=== PATIENT | female | born 1965 | race Caucasian/White ===

== ENCOUNTER 2018-12-28 10:45 | Inpatient (IN) | payer MEDICAID ==
[~2018-12-28] VITALS: Ht 152.4 cm; Wt 90.3 kg
[2018-12-28] MEDS ORDERED: LACTATED RINGERS 1,000 ML IV SCH (11:30)
[2018-12-28 11:58] LABS: UCG SCREEN NEGATIVE
[2018-12-28] MEDS ORDERED: ROCURONIUM BROMIDE 10MG/ML VIAL 5ML IV ONE ×2 (12:48→16:13)
[2018-12-28] MEDS ORDERED: PROPOFOL 200MG/20ML VIAL IV ONE (12:48)
[2018-12-28] MEDS ORDERED: FENTANYL CITRATE/PF 50MCG/ML 2ML VIAL ONE (12:48)
[2018-12-28] MEDS ORDERED: MIDAZOLAM HCL 2 MG/2 ML VIAL ONE (12:48)
[2018-12-28] MEDS ORDERED: LIDOCAINE HCL/PF 1% 10 MG/ML 5ML VIAL ONE (12:50)
[2018-12-28] MEDS ORDERED: AMLO5TAB88 PO (13:20)
[2018-12-28] MEDS ORDERED: METO-396 PO (13:20)
[2018-12-28] MEDS ORDERED: LIDOCAINE HCL 1% 20ML VIAL (Pyxis) INJ ONE (13:28)
[2018-12-28] MEDS ORDERED: SKIN ADHESIVE 0.7 GM EA TOP ONE (13:28)
[2018-12-28] MEDS ORDERED: INDOCYANINE GREEN 25 MG VIAL IV ONE (13:28)
[2018-12-28] MEDS ORDERED: BACITRACIN 50,000 UNITS/VIAL ONE (13:29)
[2018-12-28] MEDS ORDERED: BUPIVACAINE HCL 0.5% (5MG/ML) 50ML ONE (13:29)
[2018-12-28] MEDS ORDERED: BUPIVACAINE HCL/PF 0.5% (5MG/ML) 10ML ONE (15:07)
[2018-12-28] MEDS ORDERED: CEFAZOLIN SODIUM 1000MG/VIAL ONE (15:25)
[2018-12-28] MEDS ORDERED: ONDANSETRON HCL 4MG/2ML INJ IV PRN ×2 (16:15→17:45)
[2018-12-28] MEDS ORDERED: NEOSTIGMINE METHYLSULFATE 1MG/ML 10 ML VIAL ONE (17:28)
[2018-12-28] MEDS ORDERED: GLYCOPYRROLATE 0.2 MG/ML 2ML VIAL ONE (17:29)
[2018-12-28] MEDS ORDERED: DEXAMETHASONE 4MG/ML 1ML VIAL ONE (17:30)
[2018-12-28] MEDS ORDERED: ONDANSETRON HCL 4MG/2ML INJ ONE (17:30)
[2018-12-28] MEDS ORDERED: HYDRALAZINE 20MG/ML VIAL ONE (17:33)
[2018-12-28] MEDS ORDERED: HYDROMORPHONE HCL/PF 2MG/ML CPJ IV PRN ×2 (17:45→21:12)
[2018-12-28] MEDS ORDERED: MEPERIDINE HCL/PF 25MG/ML CPJ IV PRN (17:45)
[2018-12-28] MEDS ORDERED: LABETALOL 5MG/ML SYR 20 MG/4 ML SYRINGE IV PRN (17:45)
[2018-12-28 19:38] VITALS: BP 105/66
[2018-12-28 20:00] VITALS: BP 108/60
[2018-12-28] MEDS: AMLODIPINE 5MG TABLET PO SCH (21:00)
[2018-12-28] MEDS ORDERED: DEXT 5%/0.45% NACL 1000ML 1,000 ML IV SCH (21:15)
[2018-12-28] MEDS: KETOROLAC 30MG/ML VIAL IV SCH (21:59)
[2018-12-29] VITALS: BP 101/59
[2018-12-29] MEDS: KETOROLAC 30MG/ML VIAL IV SCH ×2 (03:12→10:13)
[2018-12-29 04:00] VITALS: BP 110/59
[2018-12-29 08:00] VITALS: BP 109/53
[2018-12-29] MEDS ORDERED: METOPROLOL TARTRATE 25MG TABLET PO SCH (09:00)
[2018-12-29] MEDS: AMLODIPINE 5MG TABLET PO SCH (09:00)
[2018-12-29 10:29] VITALS: BP 109/53
== END 2018-12-29 11:00 | disposition home or self-care (01) | DRG 263 ==
LOC: OR 10:45 → 6EST 21:05
PROVIDERS: ADMIT Specialist; ATTEND Specialist
PROC: 0FT44ZZ Resection of Gallbladder, Percutaneous Endoscopic Approach (ICD-10-PCS; principal; 2018-12-28)
PROC: 8E0W4CZ Robotic Assisted Procedure of Trunk Region, Percutaneous Endoscopic Approach (ICD-10-PCS; 2018-12-28)
DX: K80.10 Calculus of gallbladder with chronic cholecystitis without obstruction (principal); E66.9 Obesity, unspecified; I10 Essential (primary) hypertension; Z68.38 Body mass index [BMI] 38.0-38.9, adult; Z79.899 Other long term (current) drug therapy
CPT/HCPCS: 81025; 88302; 88304; J0360; J0690; J1100; J1170; J1885; J2250; J2405; J2704; J2710; J3010; J3490; Q9957

== ENCOUNTER 2020-09-15 22:58 | Inpatient (IN) | payer MEDICAID ==
[~2020-09-15] VITALS: Ht 152.4 cm; Wt 94.5 kg
[~2020-09-15 22:58] MED LIST: AMLO5TAB88 PO; METO-396 PO
[2020-09-16] MEDS ORDERED: MORPHINE SULFATE 4 MG/ML CPJ (NOT FOR IM USE) IV ONE (00:30)
[2020-09-16] MEDS ORDERED: ASPIRIN 325MG EC TABLET PO ONE (00:30)
[2020-09-16] MEDS ORDERED: ONDANSETRON HCL 4MG/2ML INJ IV ONE (00:45)
[2020-09-16 00:46] LABS: CHLORIDE 108 mEq/L (98-107)
[2020-09-16 00:52] LABS: BASOPHILS % 0.4 % (0.0-2.0); EOSINOPHILS % 1.8 % (0.0-5.0); HEMATOCRIT. 40.1 % (36.0-48.0); HEMOGLOBIN. 13.6 g/dL (12.0-16.0); LYMPHOCYTES % 37.6 % (20.0-50.0); MEAN CORPUSCULAR HEMOGLOBIN 29.4 pg (28.0-32.0); MEAN CORPUSCULAR VOLUME 86.7 fL (81.0-99.0); MEAN PLATELET VOLUME 10.1 fl (7.4-10.4); MONOCYTES % 6.4 % (2.0-8.0); NEUTROPHILS % 53.8 % (40.0-76.0); PLATELET 171 x1000/uL (130-400); RED BLOOD CELL COUNT 4.63 mill/uL (4.2-5.4); RED CELL DISTRIBUTION WIDTH 13.7 % (11.6-14.6)
[2020-09-16] MEDS ORDERED: ASPIRIN 81MG EC TABLET PO SCH (10:00)
[2020-09-16] MEDS ORDERED: HYDROCODONE/ACETAMINOPHEN 5/325MG TABLET PO PRN (10:15)
[2020-09-16] MEDS ORDERED: CLONIDINE 0.1MG TABLET PO PRN (10:15)
[2020-09-16] MEDS ORDERED: MAGNESIUM/ALUMINUM HYDROXIDE/SIMETHICONE 30ML UDC PO PRN (10:15)
[2020-09-16] MEDS ORDERED: NA PHOS,M-B/NA PHOS,DI-BA ENEMA 118ML PR PRN (10:15)
[2020-09-16] MEDS ORDERED: GUAIFENESIN 200MG/10ML SUGAR FREE UDC PO PRN (10:15)
[2020-09-16] MEDS ORDERED: ACETAMINOPHEN 325MG TABLET PO PRN (10:15)
[2020-09-16] MEDS ORDERED: IPRATROPIUM/ALBUTEROL 0.5-3(2.5)MG/3ML NEB NEB PRN (10:15)
[2020-09-16] MEDS ORDERED: DIPHENHYDRAMINE 50MG/ML VIAL IV PRN (10:15)
[2020-09-16] MEDS ORDERED: DOCUSATE SODIUM 100MG CAPSULE PO PRN (10:15)
[2020-09-16] MEDS ORDERED: LORAZEPAM 2MG/ML CPJ IV PRN (10:15)
[2020-09-16] MEDS ORDERED: ONDANSETRON HCL 4MG/2ML INJ IV PRN (10:15)
[2020-09-16 10:30] VITALS: BP 111/60
[2020-09-16] MEDS ORDERED: LORA2ORA5 PO (10:58)
[2020-09-16] MEDS ORDERED: ATOR40TA70 PO (10:58)
[2020-09-16] MEDS ORDERED: ASPI-1497 PO (10:58)
[2020-09-16] MEDS ORDERED: ENAL10TA19 PO (10:58)
[2020-09-16] MEDS ORDERED: ENOXAPARIN 40MG/0.4ML SYR SUBCUT SCH (11:00)
[2020-09-16 11:02] VITALS: BP 111/60
[2020-09-16 12:00] VITALS: BP 113/53
[2020-09-16 14:10] LABS: CHLORIDE 107 mEq/L (98-107)
[2020-09-16 16:00] VITALS: BP 125/66
[2020-09-16 20:00] VITALS: BP 119/68
[2020-09-16] MEDS ORDERED: NALOXONE HCL 0.4MG/ML VIAL IV PRN (20:45)
[2020-09-16] MEDS: ATORVASTATIN CALCIUM 40MG TABLET PO SCH (21:34)
[2020-09-17] VITALS: BP 116/67
[2020-09-17 04:00] VITALS: BP 120/68
[2020-09-17 06:42] LABS: BASOPHILS % 0.4 % (0.0-2.0); EOSINOPHILS % 2.8 % (0.0-5.0); HEMATOCRIT. 43.3 % (36.0-48.0); HEMOGLOBIN. 14.4 g/dL (12.0-16.0); LYMPHOCYTES % 38.3 % (20.0-50.0); MEAN CORPUSCULAR HEMOGLOBIN 28.8 pg (28.0-32.0); MEAN PLATELET VOLUME 10.3 fl (7.4-10.4); MONOCYTES % 7.7 % (2.0-8.0); NEUTROPHILS % 50.8 % (40.0-76.0); PLATELET 164 x1000/uL (130-400); RED BLOOD CELL COUNT 4.98 mill/uL (4.2-5.4); RED CELL DISTRIBUTION WIDTH 13.6 % (11.6-14.6)
[2020-09-17 06:53] LABS: PARTIAL THROMBOPLASTIN TIME 30.5 sec (23.4-31.0); PROTHROMBIN TIME 10.7 sec (9.6-11.0)
[2020-09-17 07:54] LABS: CHLORIDE 106 mEq/L (98-107)
[2020-09-17 08:00] VITALS: BP 112/67
[2020-09-17 08:06] LABS: HDL CHOLESTEROL 77 mg/dL (40-59); LDL CHOLESTEROL 47 mg/dL (5-100)
[2020-09-17 08:08] LABS: T4 FREE 1.28 ng/dL (0.76-1.46)
[2020-09-17] MEDS ORDERED: HEPARIN SODIUM 1,000 UNIT/1ML VIAL IV ONE (08:14)
[2020-09-17] MEDS ORDERED: NITROGLYCERIN 50MCG/ML 10ML VIAL (CATH LAB) IV ONE (08:14)
[2020-09-17] MEDS ORDERED: NICARDIPINE 100MCG/ML 10ML VIAL (CATH LAB) IV ONE (08:14)
[2020-09-17] MEDS: MORPHINE SULFATE 2 MG/ML CPJ (NOT FOR IM USE) IV PRN ×2 (08:19→18:41)
[2020-09-17] MEDS: ASPIRIN 81MG EC TABLET PO SCH (08:47)
[2020-09-17] MEDS ORDERED: ASPIRIN 81MG EC TABLET PO SCH (09:00)
[2020-09-17] MEDS ORDERED: IODIXANOL 320MG/ML 100 ML BOTTLE IV ONE (11:30)
[2020-09-17] MEDS ORDERED: LIDOCAINE HCL 1% 20ML VIAL (Pyxis) INJ ONE (11:30)
[2020-09-17] MEDS ORDERED: VERAPAMIL HCL 2.5 MG/1 ML 2ML VIAL IV ONE (11:57)
[2020-09-17] MEDS ORDERED: MIDAZOLAM HCL 2 MG/2 ML VIAL ONE (11:58)
[2020-09-17] MEDS ORDERED: FENTANYL CITRATE/PF 50MCG/ML 2ML VIAL ONE (11:58)
[2020-09-17 12:00] VITALS: BP 130/40
[2020-09-17] MEDS ORDERED: ATROPINE SULFATE 1MG/10ML SYR IV PRN (13:15)
[2020-09-17 16:00] VITALS: BP 123/63
[2020-09-17] MEDS ORDERED: KETOROLAC 30MG/ML VIAL IV PRN (18:15)
[2020-09-17 20:00] VITALS: BP 105/73
[2020-09-17] MEDS: ATORVASTATIN CALCIUM 40MG TABLET PO SCH (20:46)
[2020-09-18] VITALS: BP 121/65
[2020-09-18 04:00] VITALS: BP 112/63
[2020-09-18 05:27] LABS: CHLORIDE 105 mEq/L (98-107)
[2020-09-18 05:33] LABS: BASOPHILS % 0.4 % (0.0-2.0); EOSINOPHILS % 2.9 % (0.0-5.0); HEMATOCRIT. 43.3 % (36.0-48.0); HEMOGLOBIN. 14.1 g/dL (12.0-16.0); LYMPHOCYTES % 42.7 % (20.0-50.0); MEAN CORPUSCULAR HEMOGLOBIN 28.8 pg (28.0-32.0); MEAN CORPUSCULAR VOLUME 88.3 fL (81.0-99.0); MEAN PLATELET VOLUME 10.1 fl (7.4-10.4); MONOCYTES % 7.6 % (2.0-8.0); NEUTROPHILS % 46.4 % (40.0-76.0); PLATELET 152 x1000/uL (130-400); RED CELL DISTRIBUTION WIDTH 13.6 % (11.6-14.6)
[2020-09-18 08:00] VITALS: BP_SYST 114; BP_SYST 118; BP_DIAS 66; BP_DIAS 74
[2020-09-18] MEDS ORDERED: ISOSORBIDE MONONITRATE 30MG TABLET SR 24HR PO SCH (09:00)
[2020-09-18] MEDS: ASPIRIN 81MG EC TABLET PO SCH (09:07)
[2020-09-18 12:00] VITALS: BP 140/78
[2020-09-18 16:00] VITALS: BP 121/71
[2020-09-18] MEDS ORDERED: ISOS30TA91 PO (18:27)
[2020-09-18 18:36] VITALS: BP 121/71
== END 2020-09-18 19:05 | disposition home or self-care (01) | DRG 191 ==
LOC: ER 22:58 → ENRESERV 09-16 09:25 → 7EST 09-16 10:20
PROVIDERS: ADMIT Internal Medicine; ATTEND Internal Medicine
PROC: B211YZZ Fluoroscopy of Multiple Coronary Arteries using Other Contrast (ICD-10-PCS; principal; 2020-09-17)
PROC: 4A023N7 Measurement of Cardiac Sampling and Pressure, Left Heart, Percutaneous Approach (ICD-10-PCS; 2020-09-17)
PROC: B34HZZZ Ultrasonography of Right Upper Extremity Arteries (ICD-10-PCS; 2020-09-17)
DX: I25.110 Atherosclerotic heart disease of native coronary artery with unstable angina pectoris (principal); E87.8 Other disorders of electrolyte and fluid balance, not elsewhere classified; I24.9 Acute ischemic heart disease, unspecified; Z68.41 Body mass index [BMI] 40.0-44.9, adult; E66.9 Obesity, unspecified; I10 Essential (primary) hypertension; Z20.822 Contact with and (suspected) exposure to COVID-19; E78.5 Hyperlipidemia, unspecified; Z79.82 Long term (current) use of aspirin; Z79.899 Other long term (current) drug therapy; Z90.49 Acquired absence of other specified parts of digestive tract
CPT/HCPCS: 36415; 71045; 80048; 80053; 80061; 83036; 83735; 83880; 84439; 84443; 84484; 85025; 87426; 93005; 93306; 93458; 99285; C1769; C1887; C1893; J1644; J1650; J1885; J2250; J2270; J2405; J3010; J3490; Q9967

== ENCOUNTER 2021-12-30 17:23 | Emergency (ER) | payer MEDICAID, OTHER ==
[~2021-12-30] VITALS: Ht 167.6 cm; Wt 89.0 kg
[~2021-12-30 17:23] MED LIST changes: -AMLO5TAB88 PO; +ASPI-1497 PO; +ATOR40TA70 PO; +ENAL10TA19 PO; +ISOS30TA91 PO; +LORA2ORA5 PO
[2021-12-30] MEDS ORDERED: IBUPROFEN 600MG TABLET PO ONE (19:15)
[2021-12-30] MEDS ORDERED: CEPH500T MT (19:51)
[2021-12-30] MEDS ORDERED: CYCL10TA21 MT (19:51)
[2021-12-30] MEDS ORDERED: IBUP-2029 MT (19:51)
[2021-12-30 20:15] VITALS: BP 130/70
== END 2021-12-30 20:23 | disposition home or self-care (01) ==
LOC: ER 17:23
DX: S40.011A Contusion of right shoulder, initial encounter (principal); M54.89 Other dorsalgia; M19.012 Primary osteoarthritis, left shoulder; W01.198A Fall on same level from slipping, tripping and stumbling with subsequent striking against other object, initial encounter; Y93.89 Activity, other specified; Y92.018 Other place in single-family (private) house as the place of occurrence of the external cause
CPT/HCPCS: 71045; 73030; 99284

== ENCOUNTER 2023-11-01 16:02 | Emergency (ER) | payer OTHER ==
[~2023-11-01] VITALS: Ht 152.4 cm; Wt 71.0 kg
[~2023-11-01 16:02] MED LIST changes: +CYCL10TA21 MT; +ENAL-77 PO; -ENAL10TA19 PO; +IBUP-2029 MT
[2023-11-01 16:12] VITALS: O2SAT 97
[2023-11-01 16:36] LABS: CLARITY URINE CLEAR (CLEAR); COLOR URINE YELLOW (YELLOW); GLUCOSE URINE NEGATIVE (NEGATIVE); KETONES URINE NEGATIVE (NEGATIVE); LEUKOCYTE ESTERASE URINE NEGATIVE (NEGATIVE); NITRITE URINE NEGATIVE (NEGATIVE); OCCULT BLOOD URINE NEGATIVE (NEGATIVE); PROTEIN URINE NEGATIVE (NEGATIVE); SPECIFIC GRAVITY URINE 1.021 (1.005-1.030); UROBILINOGEN URINE 0.2 E.U./dL (0.2-1.0)
[2023-11-01 16:59] LABS: HEMATOCRIT 42.6 % (36.0-48.0); HEMOGLOBIN 13.5 g/dL (12.0-16.0); MEAN CORPUSCULAR HEMOGLOBIN 28.3 pg (28.0-32.0); MEAN CORPUSCULAR HGB CONC 31.6 g/dL (31.0-37.0); MEAN CORPUSCULAR VOLUME 89.6 fL (81.0-99.0); PLATELET 187 x1000/uL (130-400); RED BLOOD CELL COUNT 4.76 mill/uL (4.2-5.4); RED CELL DISTRIBUTION WIDTH 13.9 % (11.6-14.6); WHITE BLOOD COUNT 5.2 x1000/uL (4.5-11.0)
[2023-11-01 17:03] LABS: CHLORIDE 108 mEq/L (98-107); POTASSIUM 4.6 mEq/L (3.5-5.1); SODIUM 140 mEq/L (136-145)
[2023-11-01 17:04] LABS: CALCIUM 8.9 mg/dL (8.7-10.4); CARBON DIOXIDE 29 mEq/L (21-32)
[2023-11-01 17:09] LABS: CREATININE 0.8 mg/dL (0.6-1.0); GLUCOSE 106 mg/dL (70-105); UREA NITROGEN BLOOD 15 mg/dL (9-23)
[2023-11-01] MEDS: KETOROLAC 30MG/ML VIAL IM ONE (20:15)
[2023-11-01 21:15] VITALS: BP 141/78; PULSE 89; RESP 16; TEMP 36.66960; O2SAT 99
== END 2023-11-01 23:55 | disposition home or self-care (01) ==
LOC: ER 16:02
DX: R10.84 Generalized abdominal pain (principal); I10 Essential (primary) hypertension; Z90.49 Acquired absence of other specified parts of digestive tract; Z79.899 Other long term (current) drug therapy
CPT/HCPCS: 99285; 74176; 80048; 81003; 83690; 85027; 36415; 96372; J1885

== ENCOUNTER 2024-04-28 03:57 | Emergency (ER) | payer OTHER ==
[~2024-04-28 03:57] MED LIST changes: -IBUP-2029 MT; -LORA2ORA5 PO
[2024-04-28] MEDS ORDERED: SULF1TAB48 MT (05:05)
[2024-04-28] MEDS ORDERED: CEPH500C2 MT (05:05)
[2024-04-28] MEDS: IBUPROFEN 600MG TABLET PO ONE (05:32)
[2024-04-28 05:57] VITALS: BP 141/54; PULSE 60; RESP 18; O2SAT 98
== END 2024-04-28 05:57 | disposition home or self-care (01) ==
LOC: ER 03:57
DX: L02.413 Cutaneous abscess of right upper limb (principal); I10 Essential (primary) hypertension; Z79.82 Long term (current) use of aspirin; Z79.899 Other long term (current) drug therapy
CPT/HCPCS: 10060; 99283; Z7610

== ENCOUNTER 2024-05-03 12:05 | Emergency (ER) | payer OTHER ==
[~2024-05-03] VITALS: Ht 152.4 cm; Wt 101.0 kg
[~2024-05-03 12:05] MED LIST changes: +CEPH500C2 MT; +SULF1TAB48 MT
[2024-05-03 12:06] VITALS: O2SAT 99
[2024-05-03 12:17] VITALS: BP 134/47; PULSE 63; RESP 16; TEMP 36.8; O2SAT 96
== END 2024-05-03 13:27 | disposition home or self-care (01) ==
LOC: ER 12:05
DX: L02.212 Cutaneous abscess of back [any part, except buttock and flank] (principal); I10 Essential (primary) hypertension; Z79.82 Long term (current) use of aspirin; Z79.899 Other long term (current) drug therapy
CPT/HCPCS: 99281